=== PATIENT | male | born 1950 | race Caucasian/White ===

== ENCOUNTER 2017-08-24 05:52 | Day surgery (SDC) | payer MEDICARE ==
[~2017-08-24] VITALS: Ht 177.8 cm; Wt 105.9 kg
[~2017-08-24 05:52] MED LIST: ALLO300T PO; APIX5TAB PO; BISO10TA10 PO; COLC0.6T37 PO; VALS320T2 PO
[2017-08-24 06:28] VITALS: BP 131/83
[2017-08-24] MEDS ORDERED: SODIUM CHLORIDE 0.9% 500 ML IV PRN (06:38)
[2017-08-24 06:43] VITALS: BP 131/83
[2017-08-24] MEDS ORDERED: CARV25TA PO ×2 (07:06→07:34)
[2017-08-24] MEDS ORDERED: ATOR20TA9 PO (07:07)
[2017-08-24] MEDS ORDERED: CHLO25TA PO (07:07)
[2017-08-24] MEDS ORDERED: PROPOFOL 10 MG/ML, 20ML ONE (07:15)
== END 2017-08-24 09:17 | disposition home or self-care (01) ==
LOC: CACL 05:52
PROVIDERS: ATTEND Internal Medicine Cardiovascular Disease
DX: I48.92 Unspecified atrial flutter (principal); I10 Essential (primary) hypertension; E78.5 Hyperlipidemia, unspecified; E66.9 Obesity, unspecified; M10.9 Gout, unspecified; Z79.01 Long term (current) use of anticoagulants; Z87.39 Personal history of other diseases of the musculoskeletal system and connective tissue; Z88.0 Allergy status to penicillin
CPT/HCPCS: 92960; 93005; J2704

== ENCOUNTER → 2018-08-26 | Outpatient (CLI) | payer MEDICARE, OTHER ==
[~2018-08-26] MED LIST changes: +ATOR20TA37 PO; +CARV25TA PO; +CHLO25TA PO
== END | disposition home or self-care (01) ==
LOC: CVU 07:25
PROVIDERS: ATTEND Internal Medicine Cardiovascular Disease
DX: I08.1 Rheumatic disorders of both mitral and tricuspid valves (principal); I71.2 Thoracic aortic aneurysm, without rupture; I48.91 Unspecified atrial fibrillation; I10 Essential (primary) hypertension; E78.5 Hyperlipidemia, unspecified
CPT/HCPCS: 93306

== ENCOUNTER 2019-07-18 06:36 | Day surgery (SDC) | payer MEDICARE ==
[~2019-07-18] VITALS: Ht 177.8 cm; Wt 93.0 kg
[~2019-07-18 06:36] MED LIST changes: +CARV-39 PO; +SOTA120T14 PO
[2019-07-18] MEDS ORDERED: SODIUM CHLORIDE 0.9% 500 ML IV PRN (06:58)
[2019-07-18] MEDS ORDERED: SILD50TA PO (07:05)
[2019-07-18 07:06] VITALS: BP 109/75
[2019-07-18 07:42] LABS: BASOPHILS # (AUTO) 0.04 x10^3/uL (0-0.1); BASOPHILS % (AUTO) 1 % (0-1); EOSINOPHILS # (AUTO) 0.18 x10^3/uL (0-0.4); EOSINOPHILS % (AUTO) 2 % (1-7); LYMPHOCYTES # (AUTO) 1.82 x10^3/uL (1-3.4); LYMPHOCYTES % (AUTO) 23 % (22-44); MD NO; MEAN CORPUSCULAR HEMOGLOBIN 31.1 pg (27.5-34.5); MEAN CORPUSCULAR HGB CONC 33.4 g/dL (33.2-36.2); MEAN CORPUSCULAR VOLUME 93.3 fL (81-97); MEAN PLATELET VOLUME 8.3 fL (7.4-10.4); MONOCYTES # (AUTO) 0.66 x10^3/uL (0.2-0.8); MONOCYTES % (AUTO) 8 % (2-9); NEUTROPHILS # (AUTO) 5.23 x10^3/uL (1.8-6.8); NEUTROPHILS % (AUTO) 66 % (42-75); PLATELET COUNT 215 x10^3/uL (130-400); RED BLOOD COUNT 4.96 x10^6/uL (4.38-5.82); RED CELL DISTRIBUTION WIDTH 14.4 % (9.4-14.8)
[2019-07-18 07:52] LABS: ANION GAP 6 mmol/L (5-15); CALCIUM 8.6 mg/dL (8.5-10.1); CHLORIDE 108 mmol/L (98-107)
[2019-07-18] MEDS ORDERED: PROPOFOL 10 MG/ML, 20ML ONE (08:34)
== END 2019-07-18 10:01 | disposition home or self-care (01) ==
LOC: CACL 06:36
PROVIDERS: ATTEND Internal Medicine Cardiovascular Disease
DX: I48.0 Paroxysmal atrial fibrillation (principal); I10 Essential (primary) hypertension; E78.2 Mixed hyperlipidemia; I27.20 Pulmonary hypertension, unspecified; M10.9 Gout, unspecified; E66.9 Obesity, unspecified; Z68.29 Body mass index [BMI] 29.0-29.9, adult; Z79.01 Long term (current) use of anticoagulants; Z79.899 Other long term (current) drug therapy; Z88.0 Allergy status to penicillin; Z91.048 Other nonmedicinal substance allergy status
CPT/HCPCS: 36415; 80048; 85025; 92960; 93005; J2704

== ENCOUNTER 2020-01-26 06:56 | Outpatient (CLI) | payer MEDICARE ==
[~2020-01-26 06:56] MED LIST changes: +SILD50TA PO
[2020-01-26] MEDS ORDERED: REGADENOSON 0.4 MG/5 ML SYRINGE ONE (07:13)
== END 2020-01-26 23:59 | disposition home or self-care (01) ==
LOC: CFH 06:56
PROVIDERS: ATTEND Internal Medicine Cardiovascular Disease
DX: I11.9 Hypertensive heart disease without heart failure (principal); I08.1 Rheumatic disorders of both mitral and tricuspid valves; I25.89 Other forms of chronic ischemic heart disease; I48.0 Paroxysmal atrial fibrillation; I71.2 Thoracic aortic aneurysm, without rupture; E78.5 Hyperlipidemia, unspecified; I48.91 Unspecified atrial fibrillation; Z85.46 Personal history of malignant neoplasm of prostate
CPT/HCPCS: 78452; 93017; 93306; A9502; J2785